=== PATIENT | female | born 1985 | race Two or more races ===

== ENCOUNTER 2024-11-06 00:26 | Emergency (ER) | payer MEDICAID ==
[~2024-11-06] VITALS: Ht 167.6 cm; Wt 69.0 kg
[2024-11-06 00:35] VITALS: O2SAT 99
[2024-11-06 01:03] VITALS: TEMP 36.9
[2024-11-06 01:26] LABS: BASOPHILS % 0.7 % (0.0-2.0); EOSINOPHILS % 0.1 % (0.0-5.0); HEMATOCRIT. 34.4 % (36.0-48.0); HEMOGLOBIN. 11.4 g/dL (12.0-16.0); LYMPHOCYTES % 20.2 % (20.0-50.0); MONOCYTES % 2.4 % (2.0-8.0); NEUTROPHILS % 76.6 % (40.0-76.0); RED BLOOD CELL COUNT 3.89 mill/uL (4.2-5.4); RED CELL DISTRIBUTION WIDTH 13.3 % (11.6-14.6)
[2024-11-06 02:07] LABS: CREATININE 0.8 mg/dL (0.6-1.0); UREA NITROGEN BLOOD 14 mg/dL (9-23)
[2024-11-06 02:56] LABS: MEAN PLATELET VOLUME 9.3 fl (7.4-10.4); PLATELET 216 x1000/uL (130-400)
[2024-11-06 03:14] VITALS: BP 92/50; PULSE 78; RESP 18; O2SAT 98
[2024-11-06 03:15] LABS: HCG SCREEN NEGATIVE
[2024-11-07] MEDS ORDERED: IOHEXOL-300 100 ML BOTTLE ONE (22:43)
== END 2024-11-06 03:33 | disposition home or self-care (01) ==
LOC: ER 00:26
DX: F10.129 Alcohol abuse with intoxication, unspecified (principal); R11.0 Nausea; Y90.9 Presence of alcohol in blood, level not specified
CPT/HCPCS: 99283; 80048; 84703; 85025; 36415; Q9967